=== PATIENT | female | born 1930 | race Caucasian/White ===

== ENCOUNTER 2018-06-13 17:55 | Emergency (ER) | payer MEDICARE ==
[~2018-06-13] VITALS: Wt 64.5 kg
[~2018-06-13 17:55] MED LIST: METFORMIN500 MG PO
[2018-06-13] MEDS ORDERED: AMLODIPINE BESY10 MG PO (18:00)
[2018-06-13] MEDS ORDERED: LISINOPRIL40 MG PO (18:00)
[2018-06-13] MEDS ORDERED: HYDROCHLOROTH12.5 M1 PO (18:01)
[2018-06-13] MEDS ORDERED: ACTOS 15MG TAB15 MG PO (18:01)
[2018-06-13] MEDS ORDERED: NOVOLOG MIX 70/33 ML SQ (18:01)
[2018-06-13] MEDS ORDERED: SIMVASTATIN10 M1 PO (18:01)
[2018-06-13 18:49] LABS: BASO # 0.1 (0.02-0.10); EOS # 0.4 (0.04-0.40); HEMATOCRIT 37.8 % (37.0-47.0); HEMOGLOBIN 12.2 g/dL (12.5-16.0); LYMPH# 4.2 (1.50-4.00); MEAN CELL VOLUME 87 fl (78-100); MEAN CORPUSCULAR HEMOGLOBIN 28 pg (27-31); MEAN CORPUSCULAR HGB CONC 32 g/dL (33-37); MEAN PLATELET VOLUME 10.8 fl (7.4-10.4); MONO # 1.2 (0.20-0.80); NEU # 4.4 (1.40-6.50); PLATELET COUNT 264 K/mm3 (130-400); RED BLOOD COUNT 4.34 M/mm3 (4.10-5.30); RED CELL DISTRIBUTION WIDTH 14.9 % (11.5-14.5); WHITE BLOOD COUNT 10.2 K/mm3 (4.8-10.8)
[2018-06-13 19:05] LABS: CALCIUM 9.6 mg/dL (8.4-10.2); POTASSIUM 3.9 mmol/L (3.6-5.0); TOTAL BILIRUBIN 0.4 mg/dL (0.2-1.3); TOTAL PROTEIN 7.1 g/dL (6.3-8.2)
[2018-06-13 19:12] LABS: URINE APPEARANCE CLOUDY; URINE COLOR YELLOW
[2018-06-13 19:19] LABS: URINE BILIRUBIN NEGATIVE (NEGATIVE); URINE GLUCOSE NEGATIVE (NEGATIVE); URINE KETONE NEGATIVE (NEGATIVE); URINE NITRATE POSITIVE (NEGATIVE); URINE PROTEIN(semi-quant) 1+ mg/dL (NEGATIVE); URINE UROBILINOGEN NORMAL (NORMAL)
[2018-06-13 19:20] LABS: URINE BLOOD TRACE (NEGATIVE); URINE LEUKOCYTE ESTERASE 2+ (NEGATIVE); URINE WBC >50 /hpf (0-3)
[2018-06-13 19:53] LABS: D-DIMER 1.39 mg/L FEU (0.15-0.50)
[2018-06-13] MEDS ORDERED: MACROBID 100 M100 MG PO (20:25)
[2018-06-13 21:05] VITALS: BP 164/70
== END 2018-06-13 21:05 | disposition home or self-care (01) ==
LOC: ED 17:55
PROVIDERS: Family Medicine
DX: R60.0 Localized edema (principal); N39.0 Urinary tract infection, site not specified; R79.89 Other specified abnormal findings of blood chemistry; E11.9 Type 2 diabetes mellitus without complications; F03.90 Unspecified dementia, unspecified severity, without behavioral disturbance, psychotic disturbance, mood disturbance, and anxiety; Z79.4 Long term (current) use of insulin; Z79.84 Long term (current) use of oral hypoglycemic drugs
CPT/HCPCS: J1650

== ENCOUNTER → 2018-06-14 | Outpatient (CLI) | payer MEDICARE ==
[2018-06-13 21:05] VITALS: BP 164/70
[~2018-06-14] MED LIST changes: +ACTOS 15MG TAB15 MG PO; +AMLODIPINE BESY10 MG PO; +HYDROCHLOROTH12.5 M1 PO; +LISINOPRIL40 MG PO; +MACROBID 100 M100 MG PO; +NOVOLOG MIX 70/33 ML SQ; +SIMVASTATIN10 M1 PO
== END ==
LOC: RAD 10:03
DX: M79.662 Pain in left lower leg (principal); M79.661 Pain in right lower leg; R22.43 Localized swelling, mass and lump, lower limb, bilateral